=== PATIENT | female | born 1950 | race Caucasian/White ===

== ENCOUNTER → 2023-09-20 13:07 | Outpatient (REF) | payer MEDICARE, OTHER, SELFPAY | LOC: RAD 13:07 | PROVIDERS: ATTENDING PHYSICIAN Internal Medicine Rheumatology; FAMILY PHYSICIAN Family Medicine | DX: M81.0 Age-related osteoporosis without current pathological fracture (principal); Z13.820 Encounter for screening for osteoporosis | CPT/HCPCS: 77080 ==

== ENCOUNTER → 2024-02-07 08:43 | Outpatient (REF) | payer MEDICARE, OTHER, SELFPAY | LOC: WDC 08:43 | PROVIDERS: ATTENDING PHYSICIAN Family Medicine | DX: Z12.31 Encounter for screening mammogram for malignant neoplasm of breast (principal) | CPT/HCPCS: 77063; 77067 ==

== ENCOUNTER 2024-02-15 06:15 | Emergency (ER) | payer MEDICARE, OTHER, SELFPAY ==
[2024-02-15 06:21] VITALS: BP 124/65
[2024-02-15 06:38] VITALS: BMI 22.3
[2024-02-15 06:46] LABS: % Basophils 0.9 % (0-2); % Eosinophils 3.8 % (0-6); % Immature Granulocytes 0.2 % (0-0.5); % Lymphocytes 41.9 % (20.5-51.1); % Monocytes 6.6 % (1.7-9.3); % Neutrophils 46.6 % (42.2-75.2); Absolute Basophils 0.1 10^3/uL (0-0.2); Absolute Eosinophils 0.3 10^3/uL (0-0.7); Absolute Lymphocytes 2.7 10^3/uL (1.2-3.4); Absolute Monocytes 0.4 10^3/uL (0.1-0.6); Hematocrit 37.4 % (37.0-47.0); Hemoglobin 12.3 g/dL (12.0-16.0); Mean Corp Hgb Conc. 32.9 g/dL (33.0-37.0); Mean Corpuscular Hgb 29.4 pg (27.0-31.0); Mean Corpuscular Volume 89.5 fL (81.0-99.0); Mean Platelet Volume 8.8 fL (7.4-10.4); Nucleated Red Blood Cells % 0 %; Platelet Count 223 10^3/uL (130-400); Red Blood Cell Count 4.18 10^6/uL (4.20-5.40); Red Cell Dist. Width 13.2 % (11.5-14.5); White Blood Cell Count 6.5 10^3/uL (4.8-10.8)
--- NOTE | 2024-02-15 07:03 | ED.GENMED ---
History of Present Illness
General
Chief Complaint: Fainting/Passed Out
Time Seen by Provider: 02/15/24 06:43
History of Present Illness
History of Present Illness:
73-year-old female with history of scoliosis presenting to the emergency department for episode of syncope. Patient reports that she woke up prior to arrival. When she got out of bed, she felt very dizzy and lightheaded. She sat down on the
toilet. She then got a wave of nausea and extreme heat, subsequently passed out and fell striking her head. Her found her, notes she was out for about 30 seconds and came to it. Patient denies syncopal episodes in the past. She does
report that for the past several weeks she has been dealing with some dizziness, has been seeing her chiropractor and doing vestibular exercises, thought to be linked to her eyes. Denies any prodromal chest pain or difficulty breathing. Denies any
focal weakness or sensory deficits to her extremities. Does report that her blood pressure is on the lower side. Reports that she ate a normal meal last evening. Reports some residual lightheadedness currently, otherwise denies additional acute
medical complaints
Phy Exam
Physical Exam
Physical Exam:
General: Well-appearing, no clinical signs of dehydration, nontoxic and in no acute distress
HEENT: protecting airway
Neck: appears supple, no midline tenderness
CV: Normal heart rate, regular rhythm, no evidence of cyanosis
Resp: No accessory muscle use, no increased work of breathing, lungs clear to auscultation bilaterally
Abd: Soft and non-distended, no tenderness to palpation
Extremities: No deformities, no swelling, no erythema, pulses and sensation intact
Neuro: alert, no focal neurologic deficit
: deferred
Rectal: deferred
Psych: Normal affect
Skin: Intact
Course
Orders/Labs/Results
Orders:
Orders
02/15/24 06:29
EKG [Electrocardiogram (*1)] Urgent
Reason for Study: Syncope
EKG- Treatment ONCE
02/15/24 06:39
Basic Metabolic Panel Urgent
Complete Blood Count/With Diff Urgent
02/15/24 06:56
CT Head W/o Iv Contrast Urgent
Comment:
Reason For Exam: syncope
0.9% Sodium Chloride 500 ml [Nss] 500 ml IV BOLUS
02/15/24 07:30
Comprehensive Metabolic Panel Urgent
Magnesium Urgent
Phosphorus Urgent
Troponin I Urgent
Urinalysis Urgent
Date Specimen was Collected: 02/15/24
Time Specimen was Collected: 07:27
Abnormal Lab Results
02/15/24 02/15/24
06:39 07:30
RBC 4.18 L 10^6/uL
(4.20-5.40)
MCHC 32.9 L g/dL
(33.0-37.0)
BUN 20 H mg/dl 19 H mg/dl
(7-17) (7-17)
Glucose 102 H mg/dl 104 H mg/dl
(70-99) (70-99)
Calcium 10.4 H mg/dl 10.6 H mg/dl
(8.4-10.2) (8.4-10.2)
02/15/24 06:39
02/15/24 07:30
Vital Signs
Initial and Last Documented VS:
Initial Vital Signs
Temp Pulse Resp BP Pulse Ox
98.5 F 70 16 124/65 100
02/15/24 06:21 02/15/24 06:21 02/15/24 06:21 02/15/24 06:21 02/15/24 06:21
Last Documented Vital Signs
Temp Pulse Resp BP Pulse Ox
98.5 F 58 17 138/71 100
02/15/24 06:21 02/15/24 07:30 02/15/24 07:30 02/15/24 07:18 02/15/24 07:00
MDM/Problems Addressed
MDM/Problems Addressed:
73-year-old female with history of scoliosis presenting to the emergency department after a syncopal episode prior to arrival. Vital signs on arrival are normal.
On exam, patient is well-appearing, resting comfortably. She is nontoxic, hemodynamically stable with benign cardiac and pulmonary exam. EKG obtained, nonischemic, no arrhythmia. Patient without any significant signs of trauma. No focal
neurologic deficits. Patient without any acute complaints other than lightheadedness at this time. For this reason, low suspicion for ACS, PE, central neurologic process. Given age, will screen with CT brain given report of head strike. Symptom
presentation appears more consistent with vasovagal episode, occurred when getting out of bed, became very lightheaded with a wave of nausea and heat. Will screen with laboratory analysis including electrolyte panel, troponin, CBC. Will continue
to closely monitor
08:30 -CT brain without acute intracranial abnormality. Labs are unremarkable. Normal electrolyte panel. Normal blood counts. Undetectable troponin. Patient remains hemodynamically stable. She ambulated steadily. Patient slightly bradycardic,
however no signs of severe heart block. Patient requesting to go home, feel reasonable, however did explain to patient that she should follow-up closely with a chocolate finisher for evaluation of her bradycardia and syncope. Strict return precautions
were communicated and patient verbalized understanding
*EKG
Interpreted by ED Provider?: Yes
EKG Intrepretation Date: 02/15/24
EKG Intrepretation Time: 07:09
Interpretation: normal
Comparison EKG: no comparison EKG present
Heart Rate: 56
Rate: bradycardiac
Rhythm: sinus
[place]: normal axis
Interval: normal interval
QRS Pattern: normal QRS
Ischemia: no ischemia
*Critical Care Note
Total Time (30-74mins, 75-104mins- exclusive of procedures): Not Applicable
ED Attending Note
-
Portions of this chart may have been created with voice recognition software.� Occasional wrong word or��sound alike� substitutions may have occurred due to the inherent limitations of voice recognition software.
Discharge Plan
Departure
Referrals:
Mira Urias MD [Family Provider] -
Interventions
Interventions:
*Risk Screen - Suicide Last Done: 02/15/24 06:21
*General Assessment Last Done: 02/15/24 06:38
*Neglect/Abuse Screening Last Done: 02/15/24 06:38
*ED COVID-19 Vaccine History Last Done: 02/15/24 06:38
ED- Cardiac Assessment Last Done: 02/15/24 06:38
ED- Neurological Assessment Last Done: 02/15/24 06:38
Discharge Date and Time
Print Language: [id number]
[2024-02-15 07:11] LABS: Blood Urea Nitrogen 20 mg/dl (7-17); Calcium 10.4 mg/dl (8.4-10.2); Carbon Dioxide 28 mmol/L (22-30); Chloride 103 mmol/L (98-107); Estimated Creatinine Clearance 68 ml/min; Glucose 102 mg/dl (70-99); Sodium 137 mmol/L (135-145); eGFR > 60.00
[2024-02-15 07:18] VITALS: BP 138/71
[2024-02-15] MEDS: NSS 500 IV (07:31)
[2024-02-15 07:42] LABS: Urine Albumin Negative (Neg - Trace); Urine Bilirubin Negative (Negative); Urine Character Clear (Clear); Urine Color Yellow; Urine Glucose Negative (Negative); Urine Ketone Negative (Negative); Urine Leukocyte Negative (Negative); Urine Nitrite Negative (Negative); Urine Occult Blood Negative (Negative); Urine Urobilinogen Negative (Neg - 1+)
[2024-02-15 07:55] LABS: ALT (SGPT) 20 U/L (0-35); AST (SGOT) 28 U/L (14-36); Albumin 4.5 g/dl (3.5-5.0); Alkaline Phosphatase 40 U/L (38-126); Blood Urea Nitrogen 19 mg/dl (7-17); Calcium 10.6 mg/dl (8.4-10.2); Carbon Dioxide 29 mmol/L (22-30); Chloride 102 mmol/L (98-107); Estimated Creatinine Clearance 68 ml/min; Glucose 104 mg/dl (70-99); Magnesium 2.3 mg/dl (1.6-2.3); Phosphorus 2.7 mg/dl (2.5-4.5); Potassium 4.4 mmol/L (3.5-5.1); Sodium 137 mmol/L (135-145); Total Bilirubin 0.7 mg/dl (0.2-1.3); Total Protein 7.3 g/dl (6.3-8.2); eGFR > 60.00
[2024-02-15 08:00] VITALS: BP 135/65
[2024-02-15 08:06] LABS: Troponin I < 0.012 ng/ml
== END 2024-02-15 09:17 | disposition home or self-care (01) ==
LOC: EMR 06:15
PROVIDERS: EMERGENCY PHYSICIAN Student in an Organized Health Care Education/Training Program; FAMILY PHYSICIAN Family Medicine
DX: R55 Syncope and collapse (principal); R00.1 Bradycardia, unspecified
CPT/HCPCS: 99285; 96360; 70450; 80048; 80053; 81003; 83735; 84100; 84484; 85025; 93005

== ENCOUNTER → 2024-05-12 07:21 | Outpatient (REF) | payer MEDICARE, OTHER, SELFPAY ==
[2024-05-12 08:16] LABS: % Basophils 0.8 % (0-2); % Immature Granulocytes 0.2 % (0-0.5); % Lymphocytes 44.8 % (20.5-51.1); % Monocytes 7.7 % (1.7-9.3); % Neutrophils 43.5 % (42.2-75.2); Absolute Eosinophils 0.2 10^3/uL (0-0.7); Absolute Lymphocytes 2.3 10^3/uL (1.2-3.4); Absolute Monocytes 0.4 10^3/uL (0.1-0.6); Absolute Neutrophils 2.2 10^3/uL (1.4-6.5); Hematocrit 37.6 % (37.0-47.0); Hemoglobin 12.8 g/dL (12.0-16.0); Mean Corpuscular Hgb 30.6 pg (27.0-31.0); Nucleated Red Blood Cells % 0 %; Platelet Count 245 10^3/uL (130-400); Red Blood Cell Count 4.18 10^6/uL (4.20-5.40); Red Cell Dist. Width 13.4 % (11.5-14.5); White Blood Cell Count 5.1 10^3/uL (4.8-10.8)
[2024-05-12 08:48] LABS: ALT (SGPT) 18 U/L (0-35); AST (SGOT) 24 U/L (14-36); Albumin 4.3 g/dl (3.5-5.0); Alkaline Phosphatase 32 U/L (38-126); Blood Urea Nitrogen 18 mg/dl (7-17); Calcium 10.2 mg/dl (8.4-10.2); Carbon Dioxide 27 mmol/L (22-30); Chloride 102 mmol/L (98-107); Glucose 104 mg/dl (70-99); Potassium 4.4 mmol/L (3.5-5.1); Sodium 139 mmol/L (135-145); Total Bilirubin 0.6 mg/dl (0.2-1.3); Total Protein 6.9 g/dl (6.3-8.2); eGFR > 60.00
[2024-05-12 09:02] LABS: Vitamin D, 25-OH*** 75.5 ng/mL (30-80)
[2024-05-12 09:16] LABS: TSH 2.79 uIU/ml (0.47-4.68)
== END ==
LOC: REG 07:21
PROVIDERS: ATTENDING PHYSICIAN Internal Medicine Rheumatology; FAMILY PHYSICIAN Family Medicine; REFERRING PHYSICIAN Physical Medicine & Rehabilitation
DX: M81.0 Age-related osteoporosis without current pathological fracture (principal); M54.2 Cervicalgia; Z51.81 Encounter for therapeutic drug level monitoring; E78.00 Pure hypercholesterolemia, unspecified
CPT/HCPCS: 36415; 80053; 82306; 84443; 85025

== ENCOUNTER → 2024-05-25 14:35 | Outpatient (REF) | payer MEDICARE, OTHER, SELFPAY | LOC: RCS 14:35 | PROVIDERS: ATTENDING PHYSICIAN Internal Medicine; FAMILY PHYSICIAN Family Medicine | DX: R55 Syncope and collapse (principal); R00.1 Bradycardia, unspecified | CPT/HCPCS: 93306 ==

== ENCOUNTER → 2024-05-28 08:04 | Outpatient (REF) | payer MEDICARE, OTHER, SELFPAY | LOC: RCS 08:04 | PROVIDERS: ATTENDING PHYSICIAN Internal Medicine; FAMILY PHYSICIAN Family Medicine | DX: R55 Syncope and collapse (principal); R00.1 Bradycardia, unspecified | CPT/HCPCS: 93225; 93226 ==

== ENCOUNTER → 2024-06-15 14:17 | Outpatient (REF) | payer MEDICARE, OTHER, SELFPAY | LOC: RAD 14:17 | PROVIDERS: ATTENDING PHYSICIAN Family Medicine | DX: E78.00 Pure hypercholesterolemia, unspecified (principal) | CPT/HCPCS: 75571 ==

== ENCOUNTER 2024-11-24 06:23 | Day surgery (SDC) | payer MEDICARE, OTHER, SELFPAY | END 2024-11-24 12:37 | disposition home or self-care (01) | LOC: GI 06:23 | PROVIDERS: ATTENDING PHYSICIAN Internal Medicine Gastroenterology | DX: Z12.11 Encounter for screening for malignant neoplasm of colon (principal); K57.30 Diverticulosis of large intestine without perforation or abscess without bleeding; D12.8 Benign neoplasm of rectum; Q43.8 Other specified congenital malformations of intestine; Z86.0101 Personal history of adenomatous and serrated colon polyps | CPT/HCPCS: 45380; 88305 ==

== ENCOUNTER → 2024-12-14 07:06 | Outpatient (REF) | payer MEDICARE, OTHER, SELFPAY ==
[2024-12-14 08:53] LABS: % Basophils 0.9 % (0-2); % Eosinophils 2.2 % (0-6); % Immature Granulocytes 0.2 % (0-0.5); % Lymphocytes 42.6 % (20.5-51.1); % Monocytes 6.8 % (1.7-9.3); % Neutrophils 47.3 % (42.2-75.2); Absolute Basophils 0.1 10^3/uL (0-0.2); Absolute Eosinophils 0.1 10^3/uL (0-0.7); Absolute Lymphocytes 2.3 10^3/uL (1.2-3.4); Absolute Monocytes 0.4 10^3/uL (0.1-0.6); Absolute Neutrophils 2.6 10^3/uL (1.4-6.5); Hematocrit 36.5 % (37.0-47.0); Hemoglobin 12.2 g/dL (12.0-16.0); Mean Corp Hgb Conc. 33.4 g/dL (33.0-37.0); Mean Corpuscular Hgb 29.8 pg (27.0-31.0); Mean Corpuscular Volume 89.2 fL (81.0-99.0); Mean Platelet Volume 9.2 fL (7.4-10.4); Nucleated Red Blood Cells % 0 %; Platelet Count 252 10^3/uL (130-400); Red Blood Cell Count 4.09 10^6/uL (4.20-5.40); Red Cell Dist. Width 13.5 % (11.5-14.5); White Blood Cell Count 5.5 10^3/uL (4.8-10.8)
[2024-12-14 09:07] LABS: ALT (SGPT) 17 U/L (0-35); AST (SGOT) 20 U/L (14-36); Alkaline Phosphatase 31 U/L (38-126); Blood Urea Nitrogen 18 mg/dl (7-17); Carbon Dioxide 29 mmol/L (22-30); Chloride 104 mmol/L (98-107); Glucose 99 mg/dl (70-99); Potassium 4.4 mmol/L (3.5-5.1); Sodium 140 mmol/L (135-145); Total Bilirubin 0.5 mg/dl (0.2-1.3); Total Protein 6.7 g/dl (6.3-8.2); eGFR > 60.00
== END ==
LOC: REG 07:06
PROVIDERS: ATTENDING PHYSICIAN Internal Medicine Rheumatology; FAMILY PHYSICIAN Family Medicine
DX: M54.2 Cervicalgia (principal); M81.0 Age-related osteoporosis without current pathological fracture; Z51.81 Encounter for therapeutic drug level monitoring
CPT/HCPCS: 36415; 80053; 85025

== ENCOUNTER → 2025-02-25 14:07 | Outpatient (REF) | payer MEDICARE, OTHER, SELFPAY | LOC: WDC 14:07 | PROVIDERS: ATTENDING PHYSICIAN Family Medicine | DX: Z12.31 Encounter for screening mammogram for malignant neoplasm of breast (principal) | CPT/HCPCS: 77063; 77067 ==

== ENCOUNTER → 2025-07-16 07:03 | Outpatient (REF) | payer MEDICARE, OTHER, SELFPAY ==
[2025-07-16 08:06] LABS: Hematocrit 38.4 % (37.0-47.0); Hemoglobin 12.5 g/dL (12.0-16.0); Mean Corp Hgb Conc. 32.6 g/dL (33.0-37.0); Mean Corpuscular Volume 91.4 fL (81.0-99.0); Nucleated Red Blood Cells % 0 %; Platelet Count 238 10^3/uL (130-400); Red Cell Dist. Width 13.3 % (11.5-14.5)
[2025-07-16 08:57] LABS: ALT (SGPT) 16 U/L (0-35); AST (SGOT) 22 U/L (14-36); Albumin 4.3 g/dl (3.5-5.0); Alkaline Phosphatase 35 U/L (38-126); Blood Urea Nitrogen 19 mg/dl (7-17); Calcium 10.0 mg/dl (8.4-10.2); Carbon Dioxide 29 mmol/L (22-30); Chloride 103 mmol/L (98-107); Glucose 96 mg/dl (70-99); Potassium 4.4 mmol/L (3.5-5.1); Sodium 136 mmol/L (135-145); Total Protein 7.4 g/dl (6.3-8.2); eGFR > 60.00
== END ==
LOC: REG 07:03
PROVIDERS: ATTENDING PHYSICIAN Internal Medicine Rheumatology; FAMILY PHYSICIAN Family Medicine
DX: M54.2 Cervicalgia (principal); M81.0 Age-related osteoporosis without current pathological fracture; Z51.81 Encounter for therapeutic drug level monitoring
CPT/HCPCS: 36415; 80053; 85025